=== PATIENT | male | born 1975 | race Hispanic/Latino ===

== ENCOUNTER 2016-05-12 16:13 | Emergency (ER) | payer SELFPAY ==
--- NOTE | 2016-05-12 17:25 | Emergency Department Report ---
Chief Complaint: Hyperglycemia Stated Complaint: BLURRED VISION Time Seen by Provider: 05/12/16 17:19 - HPI History of Present Illness: 2-year-old male past medical hypertension as well as diabetes has not been taking medications for longer really want to talk about. He fell working out eating better will improve his diabetes and high blood pressure. But now he comes in for blurred vision increased thirst and increased urination and a little fatigued. Noticed on triage that his blood sugar was 474. Blood pressure stable at 152/89. - Exam Vital Signs: Vital Signs 05/12/16 17:09 Temperature 98.5 F Pulse Rate 71 Respiratory 16 Rate Blood Pressure 152/89 O2 Sat by Pulse 100 Oximetry Physical Exam: Patient is alert and oriented 3 no acute distress. Cardiovascular S1-S2 regular rate and rhythm respiratory clear to auscultation bilaterally abdomen soft nontender nondistended bowel sounds throughout lower extremities with no edema appreciated. MSE screening note: Focused history and physical exam performed. Due to findings the following was ordered: CBC CMP and UA is ordered patient evaluated in main ER ED Disposition for MSE Condition: Stable
[2016-05-12 17:50] LABS: Hematocrit 41.1 % (35.5-45.6); Mean Corpuscular HGB Conc 34 % (32-34); Mean Corpuscular Hemoglobin 29 pg (28-32); Mean Corpuscular Volume 86 fl (84-94); Platelet Count 313 K/mm3 (140-440); Red Blood Count 4.76 M/mm3 (3.65-5.03); Red Cell Distribution Width 11.9 % (13.2-15.2); White Blood Count 10.2 K/mm3 (4.5-11.0)
[2016-05-12 18:12] LABS: Alanine Aminotransferase 15 units/L (7-56); Albumin 4.1 g/dL (3.9-5); Albumin/Globulin Ratio 1.1 %; Alkaline Phosphatase 103 units/L (35-129); BUN/Creatinine Ratio 16.25; Bilirubin,Total 0.2 mg/dL (0.1-1.2); Blood Urea Nitrogen 13 mg/dL (9-20); Calcium 9.4 mg/dL (8.4-10.2); Carbon Dioxide 27 mmol/L (22-30); Chloride 98.4 mmol/L (98-107); Glucose 444 mg/dL (75-100); Potassium 4.4 mmol/L (3.6-5.0); Sodium 137 mmol/L (137-145)
[2016-05-12 18:13] LABS: Anion Gap 16 mmol/L
[2016-05-12 19:07] LABS: Bilirubin,Urine NEG (Negative); Blood,Urine SM (Negative); Ketones,Urine TR mg/dL (Negative); Leukocyte Esterase,Urine NEG (Negative); Mucus,Urine FEW /HPF; Nitrite,Urine NEG (Negative); Protein,Urine <15 mg/dL mg/dL (Negative); Urobilinogen,Urine < 2.0 mg/dL (<2.0)
[2016-05-13] MEDS ORDERED: NACL 0.9% 1000 ML 1,000 ML IV ONE (02:48)
--- NOTE | 2016-05-13 03:19 | Emergency Department Report ---
ED General Adult HPI - General Chief complaint: Hyperglycemia Stated complaint: BLURRED VISION Time Seen by Provider: 05/12/16 17:19 Source: patient Mode of arrival: Ambulatory Limitations: No Limitations - History of Present Illness Initial comments: 41-year-old male presents to the emergency department complaining of 3 days of blurry vision and increased urination. Patient states he has a history of diabetes and has been taking his medication. He denies associated symptoms. There are no other complaints. -: Gradual, days(s) (3) Location: eyes Consistency: intermittent Improves with: none Worsens with: none - Related Data Previous Rx's Medication Instructions Recorded Last Taken Type metFORMIN [Glucophage] 500 mg PO BID #60 tablet 05/13/16 Unknown Rx Allergies Allergy/AdvReac Type Severity Reaction Status Date / Time No Known Allergies Allergy Unverified 09/05/14 00:02 ED Review of Systems ROS: Stated complaint: BLURRED VISION Other details as noted in HPI Comment: All other systems reviewed and negative Eyes: vision change Endocrine: increased urine Genitourinary: frequency ED Past Medical Hx - Past Medical History Previous Medical History?: Yes Hx Hypertension: Yes Hx Diabetes: Yes - Surgical History Past Surgical History?: No - Family History Family history: no significant - Social History Smoking Status: Never Smoker Substance Use Type: None - Medications Home Medications: Home Medications Medication Instructions Recorded Confirmed Last Taken Type metFORMIN [Glucophage] 500 mg PO BID #60 tablet 05/13/16 Unknown Rx ED Physical Exam - General Limitations: No Limitations General appearance: alert, in no apparent distress - Head Head exam: Present: atraumatic, normocephalic - Eye Eye exam: Present: normal appearance, PERRL, EOMI - ENT ENT exam: Present: normal exam, normal orophraynx, mucous membranes moist - Neck Neck exam: Present: normal inspection, full ROM. Absent: tenderness - Respiratory Respiratory exam: Present: normal lung sounds bilaterally. Absent: respiratory distress - Cardiovascular Cardiovascular Exam: Present: regular rate, normal rhythm, normal heart sounds - GI/Abdominal GI/Abdominal exam: Present: soft, normal bowel sounds. Absent: distended, tenderness - Extremities Exam Extremities exam: Present: normal inspection, full ROM. Absent: tenderness - Back Exam Back exam: Present: normal inspection, full ROM. Absent: tenderness - Neurological Exam Neurological exam: Present: alert, oriented X3. Absent: motor sensory deficit - Skin Skin exam: Present: warm, dry, intact ED Course Vital Signs 05/12/16 05/13/16 05/13/16 17:09 01:17 03:45 Temperature 98.5 F 97.5 F L Pulse Rate 71 65 Respiratory 16 18 18 Rate Blood Pressure 152/89 Blood Pressure 147/90 [Right] O2 Sat by Pulse 100 100 100 Oximetry ED Medical Decision Making - Lab Data Result diagrams: 05/12/16 17:37 05/12/16 17:37 - Medical Decision Making Lab results reviewed and discussed with the patient. Patient will be restarted on 500 mg of metformin twice a day. Patient will be discharged home at this time to follow up with a primary care physician. - Differential Diagnosis hyperglycemia, DKA, occult infection, electrolyte abnormality Critical care attestation.: If time is entered above; I have spent that time in minutes in the direct care of this critically ill patient, excluding procedure time. ED Disposition Clinical Impression: Hyperglycemia due to type 2 diabetes mellitus Qualifiers: Diabetes mellitus intermediate accountant insulin use: without care home use Qualified Code(s ): E11.65 - Type 2 diabetes mellitus with hyperglycemia Disposition: DISCHARGED TO HOME OR SELFCARE Is pt being admited?: No Condition: Stable Instructions: Diabetic Hyperglycemia (ED) Prescriptions: metFORMIN [Glucophage] 500 mg PO BID #60 tablet Referrals: ANUJA HARRISON MD [Staff Physician] - 3-5 Days Time of Disposition: 03:58
[2016-05-13 04:28] VITALS: BP 126/47
== END 2016-05-13 04:27 | disposition home or self-care (01) ==
LOC: ED 16:13
DX: E11.65 Type 2 diabetes mellitus with hyperglycemia (principal); I10 Essential (primary) hypertension
CPT/HCPCS: 36415; 80053; 81001; 82962; 85027; 96360; 99283; J7030